=== PATIENT | male | born 1950 | race Caucasian/White ===

== ENCOUNTER 2023-04-28 07:08 | Day surgery (SDC) | payer MEDICARE, BC ==
[2023-04-26 11:19] LABS: BASOPHILS % (AUTO) 0.2 % (0-1); EOSINOPHILS # (AUTO) 0.3 X10'3 (0-0.9); EOSINOPHILS % (AUTO) 4.6 % (0-6); HEMATOCRIT 43.7 % (42.0-52.0); HEMOGLOBIN 14.9 g/dl (14.0-17.9); LYMPHOCYTES # (AUTO) 1.8 X10'3 (1.1-4.8); LYMPHOCYTES % (AUTO) 23.8 % (21-51); MEAN CORPUSCULAR HEMOGLOBIN 31.1 PG (27.0-31.0); MEAN CORPUSCULAR HGB CONC 34.1 g/dL (33.0-36.5); MEAN CORPUSCULAR VOLUME 91.2 FL (78-98); MEAN PLATELET VOLUME 8.3 FL (7.4-10.4); MONOCYTES # (AUTO) 0.5 X10'3 (0-0.9); MONOCYTES % (AUTO) 6.8 % (2-12); NEUTROPHILS # (AUTO) 4.8 X10'3 (1.8-7.7); NEUTROPHILS % (AUTO) 64.6 % (42-75); PLATELET COUNT 223 X10'3 (140-440); RED BLOOD COUNT 4.79 X10'6 (4.70-6.10); RED CELL DISTRIBUTION WIDTH 13.7 % (11.5-14.5); WHITE BLOOD COUNT 7.4 X10'3 (4.5-11.0)
[2023-04-26 11:39] LABS: APTT 27 SECONDS (22-32); PROTHROMBIN TIME 9.8 SECONDS (9.0-12.0)
[2023-04-26 11:42] LABS: INR 0.9 INR
[2023-04-26 11:51] LABS: ALANINE AMINOTRANSFERASE 38 U/L (12-78); ALBUMIN 3.8 G/DL (3.4-5.0); ALKALINE PHOSPHATASE 60 IU/L (46-116); ANION GAP 3 (8-16); ASPARTATE AMINO TRANSFERASE 25 U/L (10-37); BILIRUBIN,TOTAL 0.5 MG/DL (0.1-1.0); BLOOD UREA NITROGEN 14 MG/DL (7-18); BUN/CREATININE RATIO 15.2 (10.0-20.0); CALCIUM 9.5 MG/DL (8.5-10.1); CHLORIDE 104 MMOL/L (99-107); CREATININE 0.92 MG/DL (0.60-1.10); GLUCOSE 108 MG/DL (70-104); POTASSIUM 4.3 MMOL/L (3.5-5.1); SODIUM 138 MMOL/L (135-145); TOTAL CARBON DIOXIDE 31.4 MMOL/L (24-32); TOTAL PROTEIN 7.8 G/DL (6.4-8.2); eGFR 81 ML/MIN
[~2023-04-28] VITALS: Ht 162.6 cm; Wt 83.1 kg
[2023-04-28] VITALS (15 sets, daily range): BP systolic 120–144; BP diastolic 68–90; PULSE 56–67; RESP 14–21; TEMP 98.2; O2SAT 90–97
[2023-04-28] MEDS ORDERED: ISOT10CA13 PO (07:58)
[2023-04-28] MEDS ORDERED: PREG50CA65 PO (07:58)
[2023-04-28] MEDS ORDERED: ROSU10TA28 PO (07:58)
[2023-04-28] MEDS ORDERED: VALA100031 PO (07:59)
[2023-04-28] MEDS ORDERED: ASCO-407 (08:01)
[2023-04-28] MEDS ORDERED: SAW160CA3 (08:01)
[2023-04-28] MEDS ORDERED: CHOL100024 PO (08:02)
[2023-04-28] MEDS ORDERED: nitroGLYCERIN 0.4mg SUBLingual tab SL PRN ×2 (09:00→11:20)
[2023-04-28] MEDS ORDERED: LORazepam 0.5 MG tablet PO PRN (09:00)
[2023-04-28] MEDS ORDERED: normal saline 1,000 ML IV SCH (09:00)
[2023-04-28] MEDS ORDERED: diphenhydrAMINE 25mg capsule PO PRN (09:00)
[2023-04-28] MEDS ORDERED: fentaNYL/PF 50MCG/1 ML 2ML syringe ONE (09:40)
[2023-04-28] MEDS ORDERED: iohexol 350MG/ML 100ml bottle IV ONE (09:40)
[2023-04-28] MEDS ORDERED: iohexol 350 MG/ML 50ML vial IV ONE (09:40)
[2023-04-28] MEDS ORDERED: midazolam 1 mg/ML 2ml injection ONE ×2 (09:40→10:13)
[2023-04-28] MEDS ORDERED: LIDOcaine 1% (10mg/ml)w/preservative inj. 20ml MDV ONE (09:40)
[2023-04-28] MEDS ORDERED: HYDROcodone/acetaminophen 5mg/325mg tablet PO PRN (11:20)
[2023-04-28] MEDS ORDERED: HYDROcodone/acetaminophen 10/325mg tab PO PRN (11:20)
[2023-04-28] MEDS ORDERED: ondansetron/PF 4mg/2ml inj IV PRN (11:20)
[2023-04-28] MEDS ORDERED: normal saline 1000ml 1,000 ML IV SCH (11:20)
[2023-04-28] MEDS ORDERED: proCHLORperazine 10 MG/2 ml inj IV PRN (11:20)
[2023-04-28] MEDS ORDERED: OXAZEpam 15mg capsule PO PRN (11:20)
[2023-04-28] MEDS ORDERED: pneumococcal 23-VAL P-sac vacc 25 mcg/0.5ml vial IMVAC ONE (15:30)
[2023-04-29 16:53] LABS: % FREE PSA 7.4 % (.); PROSTATE SPECIFIC AG, SERUM 7.4 ng/mL (0.0-4.0); PSA, FREE 0.55 ng/mL
== END 2023-04-28 16:50 | disposition home or self-care (01) ==
LOC: SSTAY O 07:08
PROVIDERS: ATTEND Internal Medicine Cardiovascular Disease
DX: I25.119 Atherosclerotic heart disease of native coronary artery with unspecified angina pectoris (principal); E78.5 Hyperlipidemia, unspecified; J43.9 Emphysema, unspecified; N40.1 Benign prostatic hyperplasia with lower urinary tract symptoms; Z88.2 Allergy status to sulfonamides; Z87.891 Personal history of nicotine dependence; Z79.899 Other long term (current) drug therapy; Z23 Encounter for immunization; Z79.01 Long term (current) use of anticoagulants
CPT/HCPCS: 36415; 71046; 80053; 84153; 84154; 85025; 85610; 85730; 90732; 93005; 93458; 99152; G0009; J1644; J2250; J3010; J3490; J7030; Q0163; Q9967; 99153; A6258; C1760